=== PATIENT | male | born 1930 | race Caucasian/White ===

== ENCOUNTER 2018-06-07 10:13 | Outpatient (CLI) | payer MEDICARE, OTHER ==
[~2018-06-07 10:13] MED LIST: Iopamidol 370 76% 100 ML VIAL ONE
--- NOTE | 2018-06-07 15:54 | CT ---
ABDOMEN CT SCAN WITH IV CONTRAST: HISTORY: An 88-year-old male with a history of weight loss, bloating, and abdominal pain. FINDINGS: There are some old granulomatous calcifications within the visualized lungs with some minimal linear stranding in the left base with some chronic change and/or subsegmental atelectasis. There is a larg e hiatal hernia with essentially of the stomach being herniated. 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 No evidence for significant volvulus of the stomach. There is emptying o f contrast from the antrum which is essentially at the GE junction region into the second and third p ortions of the duodenum. There is a large septated cyst involving the left kidney which measures blake roximately 4.7 x 7.4 x 8.2 cm in size. There are some slightly thickened calcified septae involving a portion of this loculated cyst. There is no definitive evidence for soft tissue enhancement associ ated with this cyst. Several other smaller right and left renal cysts. No renal calculus or obst ruction. A 4.4 cm diameter infrarenal infrarenal abdominal aortic aneurysm above the level of the bi furcation with some associated thick noncalcified plaque. Normal-appearing appendix. No significant free intraperitoneal fluid. IMPRESSION: Very large hiatal hernia with almost the entire stomach being herniated. No evidence for obstruction or significant associated volvulus. Large multiseptated left renal cyst with some associated fairly thick calcified septae, but no evidence of abnormal enhancing soft tissue component. Multiple other bilateral renal cysts. If the patient has any hematuria, consideration for a complete with and without contrast study with r enal mass protocol might be of benefit. A 4.4 cm diameter infrarenal abdominal aortic aneurysm. No other significant acute process. POS: [facility]
== END 2018-06-07 10:14 | disposition home or self-care (01) ==
LOC: SCSCT 10:13
PROVIDERS: ATTEND Internal Medicine Gastroenterology
DX: R10.9 Unspecified abdominal pain (principal); R63.4 Abnormal weight loss; R14.0 Abdominal distension (gaseous); K44.9 Diaphragmatic hernia without obstruction or gangrene; N28.1 Cyst of kidney, acquired; I71.4 Abdominal aortic aneurysm, without rupture
CPT/HCPCS: 74160; 82565

== ENCOUNTER 2021-12-17 13:39 | Outpatient (CLI) | payer MEDICARE, OTHER ==
[2021-12-17 15:11] LABS: #Basophils 0.1 10x3/uL (0.0-0.2); #Monocytes 0.8 10x3/uL (0.0-1.1); #Neutrophils 10.2 10x3/uL (1.5-8.4); %Basophils 0.5 % (0.0-2.0); %Eosinophils 0.3 % (0.0-6.0); %Lymphocytes 9.3 % (18.0-47.0); %Monocytes 6.8 % (0.0-10.0); %Neutrophils 82.8 % (40.0-75.0); Hemoglobin 11.8 g/dL (13.5-17.5); Mean Corpuscular HGB CONC 32.2 g/dL (32.0-36.0); Mean Corpuscular Hemoglobin 28.8 pg (27.0-33.0); Mean Corpuscular Volume 89.5 fl (81.2-95.1); Mean Platelet Volume 9.6 fl (7.4-10.4); Platelet Count 270 10x3/uL (150-450); RBC Distribution Width 15.6 % (11.5-14.5); White Blood Cell (WBC) Count 12.3 10x3/uL (3.5-10.5)
[2021-12-17 15:25] LABS: ALT (SGPT) 9 U/L (8-55); AST (SGOT) 17 U/L (5-34); Albumin 4.2 g/dL (3.4-4.8); Alkaline Phosphatase 67 U/L (40-110); Anion Gap 15 mmol/L (10-20); BUN (Urea Nitrogen) 15 mg/dL (8.4-25.7); Bilirubin, Total 0.5 mg/dL (0.2-1.2); Calc. Creatinine Clearance 0 mL/min (70-130); Calcium 9.2 mg/dL (7.8-10.44); Carbon Dioxide 26 mmol/L (23-31); Chloride 101 mmol/L (98-107); Globulin 2.7 g/dL (2.4-3.5); Glucose 114 mg/dL (83-110); Potassium 4.7 mmol/L (3.5-5.1); Protein, Total 6.9 g/dL (5.8-8.1); Sodium 137 mmol/L (136-145)
[2021-12-18 08:33] LABS: SARS-CoV-2 PCR by NAA Not Detected (NotDetected)
== END 2021-12-17 13:40 | disposition home or self-care (01) ==
LOC: LABBT 13:39
PROVIDERS: ATTEND Surgery
DX: Z01.818 Encounter for other preprocedural examination (principal); K44.9 Diaphragmatic hernia without obstruction or gangrene; Z20.822 Contact with and (suspected) exposure to COVID-19
CPT/HCPCS: 80053; 85025; 93005; U0003; U0005; 93010

== ENCOUNTER 2021-12-22 05:56 | Observation (INO) | payer MEDICARE ==
[2021-12-19 10:55] VITALS: BMI 17.2
[2021-12-22] MEDS ORDERED: SUGAMMADEX SODIUM 200 MG/2 ML VIAL ONE (06:34)
[2021-12-22] MEDS ORDERED: fentaNYL Citrate/PF 100 MCG/2 ML SYRINGE ONE (06:34)
[2021-12-22] MEDS ORDERED: Famotidine/PF 20 mg/2ml Vial ONE (06:35)
[2021-12-22] MEDS ORDERED: Bupivacaine 0.25% 10 ML VIAL ONE (06:54)
[2021-12-22] MEDS ORDERED: Lidocaine 1% w/Epinephrine 1:100K 20 ML VIAL ONE (06:54)
[2021-12-22] MEDS ORDERED: ceFAZolin (BATCH) 2 GM/100 ML BAG ONE (07:24)
[2021-12-22] MEDS ORDERED: Ketorolac Tromethamine 30 MG/ML VIAL ONE (07:33)
[2021-12-22] MEDS ORDERED: Ondansetron PF 4 MG/2 ML Vial ONE (07:33)
[2021-12-22] MEDS ORDERED: Succinylcholine 200 MG/10 ml SYRINGE FS ONE (07:33)
[2021-12-22] MEDS ORDERED: Rocuronium Bromide 10 MG/ML (10ML VIAL) ONE (07:33)
[2021-12-22] MEDS ORDERED: Glycopyrrolate 0.2 MG/ML 5 ML SYRINGE ONE (07:33)
[2021-12-22] MEDS ORDERED: PHENYLEPHRINE-NS 100 MCG/ML 10 ML SYRINGE ONE (07:33)
[2021-12-22] MEDS ORDERED: PROPOFOL 200 MG/20 ML VIAL ONE (07:33)
[2021-12-22] MEDS ORDERED: Dexamethasone 20 MG/5 ML VIAL ONE (07:33)
[2021-12-22] MEDS ORDERED: Metoclopramide HCl 10 MG/2 ML VIAL ONE (07:33)
[2021-12-22] MEDS ORDERED: Lidocaine 1% PF 5 ML VIAL ONE (07:33)
[2021-12-22] MEDS ORDERED: hydrALAZINE 20 MG/ML VIAL SLOW IVP PRN (10:21)
[2021-12-22] MEDS ORDERED: Dextrose 50% Abboject 50 ML SYRINGE SLOW IVP PRN (10:21)
[2021-12-22] MEDS ORDERED: Hydrocodone-Acetamin 15 ML UDCUP PO PRN (10:21)
[2021-12-22] MEDS ORDERED: diphenhydrAMINE 50 MG/ML VIAL IVP PRN (10:21)
[2021-12-22] MEDS ORDERED: Dextrose 5% in Water 1,000 ML IV PRN (10:21)
[2021-12-22] MEDS ORDERED: Promethazine HCl 25 MG/ML VIAL IM PRN (10:21)
[2021-12-22] MEDS ORDERED: Morphine 4 MG/ML VIAL SLOW IVP PRN (10:21)
[2021-12-22] MEDS ORDERED: Morphine 2 MG/ML VIAL SLOW IVP PRN (10:21)
[2021-12-22] MEDS ORDERED: Ondansetron PF 4 MG/2 ML Vial IVP PRN (10:21)
[2021-12-22] MEDS ORDERED: Ondansetron HCl/PF 4 MG/2 ML Vial IVP PRN (10:28)
[2021-12-22] MEDS ORDERED: Fentanyl 100 MCG/2 ML VIAL ONE (10:47)
[2021-12-22] MEDS: D5 1/2 NS w/20 mEq KCL 1,000 ML IV SCH ×2 (12:45→20:29)
[2021-12-22] MEDS: ceFAZolin (BATCH) 2 GM in Premix Bag 1 BAG IVPB SCH (17:11)
[2021-12-22] MEDS ORDERED: ALPRAZolam 0.25 MG TAB PO SCH (21:00)
[2021-12-23] MEDS: ceFAZolin (BATCH) 2 GM in Premix Bag 1 BAG IVPB SCH (00:48)
[2021-12-23] MEDS: D5 1/2 NS w/20 mEq KCL 1,000 ML IV SCH ×2 (05:45→13:42)
[2021-12-23 06:50] LABS: #Lymphocytes 1.1 thou/uL (1.20-3.40); #Monocytes 0.9 thou/uL (0.11-0.59); #Neutrophils 8.2 thou/uL (1.40-6.50); %Basophils 0.2 % (0.0-1.0); %Eosinophils 0.2 % (0.0-10.0); %Lymphocytes 10.7 % (21.0-51.0); %Monocytes 8.4 % (0.0-10.0); %Neutrophils 80.5 % (42.0-75.0); Hemoglobin 10.7 g/dL (14.0-18.0); Mean Corpuscular HGB CONC 33.2 g/dL (32.0-36.0); Mean Corpuscular Hemoglobin 31.4 pg (27.0-31.0); Mean Corpuscular Volume 94.5 fL (78.0-98.0); Mean Platelet Volume 7.2 fL (7.4-10.4); Platelet Count 181 thou/uL (130-400); RBC Distribution Width 15.3 % (11.5-14.5); Red Blood Cell (RBC) Count 3.42 mill/uL (4.70-6.10); White Blood Cell (WBC) Count 10.2 thou/uL (4.8-10.8)
[2021-12-23 07:11] LABS: Anion Gap 9 mmol/L (10-20); BUN (Urea Nitrogen) 13 mg/dL (8.4-25.7); Calc. Creatinine Clearance 46 mL/min (70-130); Calcium 8.8 mg/dL (7.8-10.44); Carbon Dioxide 26 mmol/L (23-31); Chloride 104 mmol/L (98-107); Glucose 104 mg/dL (83-110); Potassium 4.6 mmol/L (3.5-5.1); Sodium 134 mmol/L (136-145)
[2021-12-23] MEDS ORDERED: Enoxaparin Sodium 30 MG/0.3 ML SYRINGE SC SCH (09:00)
[2021-12-23] MEDS ORDERED: Pantoprazole 40 MG VIAL IVP SCH (09:00)
[2021-12-23 12:56] VITALS: BP 153/80; TEMP 97.5
== END 2021-12-23 12:25 | disposition home or self-care (01) ==
LOC: SDC 05:56 → SURG B 10:21 → INTOOBSV 10:21 → OBSVTOIN 10:21
PROVIDERS: ADMIT Surgery; ATTEND Surgery
PROC: 0BUT4JZ Supplement Diaphragm with Synthetic Substitute, Percutaneous Endoscopic Approach (ICD-10-PCS; principal; 2021-12-22)
PROC: 0DV44ZZ Restriction of Esophagogastric Junction, Percutaneous Endoscopic Approach (ICD-10-PCS; 2021-12-22)
PROC: 8E0W4CZ Robotic Assisted Procedure of Trunk Region, Percutaneous Endoscopic Approach (ICD-10-PCS; 2021-12-22)
DX: K44.9 Diaphragmatic hernia without obstruction or gangrene (principal); K31.89 Other diseases of stomach and duodenum; I25.10 Atherosclerotic heart disease of native coronary artery without angina pectoris; I10 Essential (primary) hypertension; E78.5 Hyperlipidemia, unspecified; K21.9 Gastro-esophageal reflux disease without esophagitis; M19.90 Unspecified osteoarthritis, unspecified site; R63.4 Abnormal weight loss; Z68.1 Body mass index [BMI] 19.9 or less, adult; Z79.02 Long term (current) use of antithrombotics/antiplatelets; Z79.83 Long term (current) use of bisphosphonates; Z79.899 Other long term (current) drug therapy; Z95.1 Presence of aortocoronary bypass graft
CPT/HCPCS: 36415; 80048; 85025; C1781; C9113; J0690; J1100; J1650; J1885; J2405; J2704; J2765; J3010; J3480; S0020; S0028

== ENCOUNTER 2021-12-30 01:29 | Inpatient (IN) | payer MEDICARE, OTHER ==
[2021-12-30] MEDS ORDERED: Ondansetron PF 4 MG/2 ML Vial IVP PRN ×2 (03:15→18:09)
[2021-12-30] MEDS ORDERED: Ondansetron ODT 4 MG TAB SL PRN (03:15)
[2021-12-30] MEDS ORDERED: Lactated Ringer's 1,000 ML IV SCH (03:15)
[2021-12-30 03:28] LABS: SARS-CoV-2 NAA Rapid Test Not Detected (NotDetected)
[2021-12-30 04:32] VITALS: BMI 16.2
[2021-12-30 08:33] LABS: #Eosinphils 0.1 thou/uL (0.0-0.7); #Lymphocytes 1.3 thou/uL (1.20-3.40); #Monocytes 1.1 thou/uL (0.11-0.59); #Neutrophils 6.7 thou/uL (1.40-6.50); %Basophils 0.2 % (0.0-1.0); %Eosinophils 0.9 % (0.0-10.0); %Lymphocytes 13.9 % (21.0-51.0); %Monocytes 11.9 % (0.0-10.0); Hemoglobin 11.1 g/dL (14.0-18.0); Mean Corpuscular HGB CONC 32.5 g/dL (32.0-36.0); Mean Corpuscular Hemoglobin 30.4 pg (27.0-31.0); Mean Corpuscular Volume 93.6 fL (78.0-98.0); Platelet Count 256 thou/uL (130-400); RBC Distribution Width 15.4 % (11.5-14.5); Red Blood Cell (RBC) Count 3.64 mill/uL (4.70-6.10); White Blood Cell (WBC) Count 9.2 thou/uL (4.8-10.8)
[2021-12-30 08:48] LABS: ALT (SGPT) Less than 7 U/L (8-55); AST (SGOT) 11 U/L (5-34); Albumin 3.2 g/dL (3.4-4.8); Alkaline Phosphatase 49 U/L (40-110); Anion Gap 8 mmol/L (10-20); BUN (Urea Nitrogen) 18 mg/dL (8.4-25.7); Bilirubin, Total 0.4 mg/dL (0.2-1.2); Calc. Creatinine Clearance 47 mL/min (70-130); Calcium 8.7 mg/dL (7.8-10.44); Carbon Dioxide 28 mmol/L (23-31); Chloride 102 mmol/L (98-107); Globulin 2.8 g/dL (2.4-3.5); Glucose 114 mg/dL (83-110); Lipase 19 U/L (8-78); Magnesium 2.1 mg/dL (1.6-2.6); Phosphorus 2.6 mg/dL (2.3-4.7); Potassium 4.2 mmol/L (3.5-5.1); Sodium 134 mmol/L (136-145)
[2021-12-30] MEDS ORDERED: PHENYLEPHRINE-NS 100 MCG/ML 10 ML SYRINGE ONE ×2 (10:51→11:00)
[2021-12-30] MEDS ORDERED: PROPOFOL 200 MG/20 ML VIAL ONE (11:00)
[2021-12-30] MEDS ORDERED: Lidocaine 1% PF 5 ML VIAL ONE (11:00)
[2021-12-30] MEDS ORDERED: Sodium Chloride 0.9% 1,000 ML IV SCH (11:45)
[2021-12-30] MEDS: Multivitamins, Adult 10 ML, Folic Acid 1 MG, Thiamine HCl 100 MG in Dextrose 5 %-0.45 %... IV SCH (14:39)
[2021-12-30] MEDS ORDERED: Calcium Carbonate 500 MG ChewTAB PO PRN (17:57)
[2021-12-30] MEDS ORDERED: Acetaminophen 650 MG Suppository PR PRN (17:57)
[2021-12-30] MEDS ORDERED: Ondansetron ODT 4 MG TAB PO PRN (18:09)
[2021-12-30] MEDS: cefTRIAXone\\ROCEPHIN 1 GM in Sodium Chloride 0.9% 100 ML IVPB SCH (20:44)
[2021-12-30] MEDS: Pantoprazole 40 MG VIAL IVP SCH (20:47)
[2021-12-30] MEDS ORDERED: Lorazepam 2 MG/ML VIAL SLOW IVP SCH ×2 (21:00)
[2021-12-30] MEDS: Sodium Chloride 0.65% Nasal 44 ML BOT EA NARE SCH (21:25)
[2021-12-31] MEDS: D5 1/2 NS w/20 mEq KCL 1,000 ML IV SCH ×2 (01:06→17:41)
[2021-12-31] MEDS ORDERED: D5 1/2 NS w/20 mEq KCL 1,000 ML IV SCH ×2 (03:00)
[2021-12-31] MEDS: Pantoprazole 40 MG VIAL IVP SCH ×2 (08:14→21:12)
[2021-12-31] MEDS: Sodium Chloride 0.65% Nasal 44 ML BOT EA NARE SCH ×3 (08:22→21:17)
[2021-12-31 09:45] LABS: #Eosinphils 0.2 thou/uL (0.0-0.7); #Lymphocytes 0.9 thou/uL (1.20-3.40); #Monocytes 0.5 thou/uL (0.11-0.59); #Neutrophils 5.2 thou/uL (1.40-6.50); %Basophils 0.3 % (0.0-1.0); %Eosinophils 2.5 % (0.0-10.0); %Lymphocytes 12.6 % (21.0-51.0); %Monocytes 7.2 % (0.0-10.0); %Neutrophils 77.4 % (42.0-75.0); Hemoglobin 10.7 g/dL (14.0-18.0); Mean Corpuscular HGB CONC 31.6 g/dL (32.0-36.0); Mean Corpuscular Hemoglobin 30.2 pg (27.0-31.0); Mean Corpuscular Volume 95.5 fL (78.0-98.0); Mean Platelet Volume 6.7 fL (7.4-10.4); Platelet Count 261 thou/uL (130-400); RBC Distribution Width 15.4 % (11.5-14.5); Red Blood Cell (RBC) Count 3.53 mill/uL (4.70-6.10); White Blood Cell (WBC) Count 6.7 thou/uL (4.8-10.8)
[2021-12-31 10:06] LABS: ALT (SGPT) Less than 7 U/L (8-55); AST (SGOT) 11 U/L (5-34); Alkaline Phosphatase 47 U/L (40-110); Anion Gap 9 mmol/L (10-20); BUN (Urea Nitrogen) 9 mg/dL (8.4-25.7); Bilirubin, Total 0.5 mg/dL (0.2-1.2); Calc. Creatinine Clearance 50 mL/min (70-130); Calcium 8.4 mg/dL (7.8-10.44); Carbon Dioxide 23 mmol/L (23-31); Chloride 106 mmol/L (98-107); Globulin 2.6 g/dL (2.4-3.5); Glucose 109 mg/dL (83-110); Phosphorus 2.8 mg/dL (2.3-4.7); Potassium 4.1 mmol/L (3.5-5.1); Protein, Total 5.6 g/dL (5.8-8.1); Sodium 134 mmol/L (136-145)
[2021-12-31] MEDS: Multivitamins, Adult 10 ML, Folic Acid 1 MG, Thiamine HCl 100 MG in Dextrose 5 %-0.45 %... IV SCH (12:41)
[2021-12-31] MEDS: Morphine 2 MG/ML VIAL SLOW IVP PRN (12:41)
[2021-12-31] MEDS: Tamsulosin HCl 0.4 MG CAP PO SCH (12:41)
[2021-12-31] MEDS: ALPRAZolam 0.25 MG TAB PO SCH (21:11)
[2021-12-31] MEDS: cefTRIAXone\\ROCEPHIN 1 GM in Sodium Chloride 0.9% 100 ML IVPB SCH (21:11)
[2022-01-01] MEDS: D5 1/2 NS w/20 mEq KCL 1,000 ML IV SCH (05:11)
[2022-01-01] MEDS: Sodium Chloride 0.65% Nasal 44 ML BOT EA NARE SCH ×3 (08:24→20:24)
[2022-01-01] MEDS: Pantoprazole 40 MG VIAL IVP SCH ×2 (08:24→20:24)
[2022-01-01 09:59] LABS: #Eosinphils 0.1 thou/uL (0.0-0.7); #Lymphocytes 1.2 thou/uL (1.20-3.40); #Monocytes 0.6 thou/uL (0.11-0.59); #Neutrophils 6.2 thou/uL (1.40-6.50); %Basophils 0.4 % (0.0-1.0); %Eosinophils 1.6 % (0.0-10.0); %Lymphocytes 14.4 % (21.0-51.0); %Neutrophils 76.6 % (42.0-75.0); Hemoglobin 11.2 g/dL (14.0-18.0); Mean Corpuscular HGB CONC 31.2 g/dL (32.0-36.0); Mean Corpuscular Hemoglobin 29.5 pg (27.0-31.0); Mean Corpuscular Volume 94.8 fL (78.0-98.0); Mean Platelet Volume 6.6 fL (7.4-10.4); Platelet Count 291 thou/uL (130-400); RBC Distribution Width 15.7 % (11.5-14.5); Red Blood Cell (RBC) Count 3.79 mill/uL (4.70-6.10)
[2022-01-01 10:14] LABS: Phosphorus 2.7 mg/dL (2.3-4.7)
[2022-01-01 10:18] LABS: ALT (SGPT) Less than 7 U/L (8-55); AST (SGOT) 12 U/L (5-34); Albumin 3.1 g/dL (3.4-4.8); Alkaline Phosphatase 48 U/L (40-110); Anion Gap 10 mmol/L (10-20); BUN (Urea Nitrogen) 6 mg/dL (8.4-25.7); Bilirubin, Total 0.5 mg/dL (0.2-1.2); Calc. Creatinine Clearance 48 mL/min (70-130); Calcium 8.3 mg/dL (7.8-10.44); Carbon Dioxide 24 mmol/L (23-31); Chloride 107 mmol/L (98-107); Globulin 2.7 g/dL (2.4-3.5); Glucose 109 mg/dL (83-110); Potassium 3.8 mmol/L (3.5-5.1); Protein, Total 5.8 g/dL (5.8-8.1); Sodium 137 mmol/L (136-145)
[2022-01-01] MEDS: Morphine 2 MG/ML VIAL SLOW IVP PRN (10:41)
[2022-01-01] MEDS: Tamsulosin HCl 0.4 MG CAP PO SCH (12:04)
[2022-01-01] MEDS: Multivitamins, Adult 10 ML, Folic Acid 1 MG, Thiamine HCl 100 MG in Dextrose 5 %-0.45 %... IV SCH (12:58)
[2022-01-01] MEDS ORDERED: MD-Gastroview 120 ML BOT ONE (15:55)
[2022-01-01] MEDS: ALPRAZolam 0.25 MG TAB PO SCH (20:19)
[2022-01-01] MEDS: cefTRIAXone\\ROCEPHIN 1 GM in Sodium Chloride 0.9% 100 ML IVPB SCH (20:19)
[2022-01-01] MEDS ORDERED: Lorazepam 2 MG/ML VIAL SLOW IVP SCH (22:00)
[2022-01-02] MEDS: D5 1/2 NS w/20 mEq KCL 1,000 ML IV SCH ×3 (01:19→22:14)
[2022-01-02 06:32] LABS: #Basophils 0.1 thou/uL (0.0-0.2); #Eosinphils 0.2 thou/uL (0.0-0.7); #Lymphocytes 1.5 thou/uL (1.20-3.40); #Monocytes 0.7 thou/uL (0.11-0.59); #Neutrophils 4.3 thou/uL (1.40-6.50); %Basophils 0.8 % (0.0-1.0); %Eosinophils 3.3 % (0.0-10.0); %Lymphocytes 22.1 % (21.0-51.0); %Monocytes 9.7 % (0.0-10.0); %Neutrophils 64.1 % (42.0-75.0); Hemoglobin 10.7 g/dL (14.0-18.0); Mean Corpuscular HGB CONC 31.7 g/dL (32.0-36.0); Mean Corpuscular Volume 94.7 fL (78.0-98.0); Mean Platelet Volume 6.8 fL (7.4-10.4); Platelet Count 267 thou/uL (130-400); RBC Distribution Width 15.5 % (11.5-14.5); Red Blood Cell (RBC) Count 3.57 mill/uL (4.70-6.10); White Blood Cell (WBC) Count 6.7 thou/uL (4.8-10.8)
[2022-01-02 07:34] LABS: Phosphorus 2.7 mg/dL (2.3-4.7)
[2022-01-02 07:45] LABS: ALT (SGPT) Less than 7 U/L (8-55); AST (SGOT) 13 U/L (5-34); Albumin 2.9 g/dL (3.4-4.8); Alkaline Phosphatase 48 U/L (40-110); Anion Gap 7 mmol/L (10-20); BUN (Urea Nitrogen) 6 mg/dL (8.4-25.7); Bilirubin, Total 0.5 mg/dL (0.2-1.2); Calc. Creatinine Clearance 53 mL/min (70-130); Calcium 7.9 mg/dL (7.8-10.44); Carbon Dioxide 23 mmol/L (23-31); Chloride 109 mmol/L (98-107); Globulin 2.6 g/dL (2.4-3.5); Glucose 104 mg/dL (83-110); Potassium 3.4 mmol/L (3.5-5.1); Protein, Total 5.5 g/dL (5.8-8.1); Sodium 136 mmol/L (136-145)
[2022-01-02] MEDS: Pantoprazole 40 MG VIAL IVP SCH ×2 (09:49→22:14)
[2022-01-02] MEDS: Aquaphor 10 GM TUBE TOP SCH ×3 (13:31→22:05)
[2022-01-02] MEDS: Tamsulosin HCl 0.4 MG CAP PO SCH (13:31)
[2022-01-02] MEDS: Sodium Chloride 0.65% Nasal 44 ML BOT EA NARE SCH ×3 (13:32→22:05)
[2022-01-02] MEDS ORDERED: [UNRECOGNIZED DRUG - OTHER] IV SCH (14:00)
[2022-01-02] MEDS ORDERED: POTASSIUM PHOSPHATE IV SCH (14:00)
[2022-01-02] MEDS ORDERED: SODIUM ACETATE IV SCH (14:00)
[2022-01-02] MEDS ORDERED: POTASSIUM ACETATE IV SCH (14:00)
[2022-01-02] MEDS: Multivitamins, Adult 10 ML, Folic Acid 1 MG, Thiamine HCl 100 MG in Dextrose 5 %-0.45 %... IV SCH (17:04)
[2022-01-02] MEDS ORDERED: Phenylephrine 10 MG/ML VIAL ONE (17:19)
[2022-01-02] MEDS ORDERED: PHENYLEPHRINE-NS 100 MCG/ML 10 ML SYRINGE ONE (19:09)
[2022-01-02] MEDS ORDERED: AFRIN NASAL MIST 15 ML BOT ONE (20:12)
[2022-01-02] MEDS: ALPRAZolam 0.25 MG TAB PO SCH (22:05)
[2022-01-02] MEDS: cefTRIAXone\\ROCEPHIN 1 GM in Sodium Chloride 0.9% 100 ML IVPB SCH (22:14)
[2022-01-02 23:44] LABS: ALT (SGPT) Less than 7 U/L (8-55); AST (SGOT) 14 U/L (5-34); Alkaline Phosphatase 51 U/L (40-110); Anion Gap 10 mmol/L (10-20); BUN (Urea Nitrogen) 7 mg/dL (8.4-25.7); Bilirubin, Total 0.6 mg/dL (0.2-1.2); Calc. Creatinine Clearance 54 mL/min (70-130); Calcium 8.4 mg/dL (7.8-10.44); Carbon Dioxide 24 mmol/L (23-31); Chloride 108 mmol/L (98-107); Cholesterol 99 mg/dl (< 200 Desired); Globulin 2.8 g/dL (2.4-3.5); Glucose 94 mg/dL (83-110); HDL Cholesterol 33 mg/dL (>60 Neg Risk); LDL Cholesterol, Calculated 54 mg/dL; Phosphorus 2.9 mg/dL (2.3-4.7); Potassium 3.8 mmol/L (3.5-5.1); Protein, Total 5.8 g/dL (5.8-8.1); Sodium 138 mmol/L (136-145); Triglycerides 62 mg/dL (Less than 150)
[2022-01-02 23:46] LABS: INR-International Normal Ratio 1.2; Prothrombin Time 15.5 sec (12.0-14.7)
[2022-01-02 23:47] LABS: PTT 41.7 sec (22.9-36.1)
[2022-01-03 06:59] LABS: #Eosinphils 0.1 thou/uL (0.0-0.7); #Lymphocytes 1.1 thou/uL (1.20-3.40); #Monocytes 0.7 thou/uL (0.11-0.59); #Neutrophils 6.8 thou/uL (1.40-6.50); %Basophils 0.3 % (0.0-1.0); %Eosinophils 1.3 % (0.0-10.0); %Lymphocytes 12.1 % (21.0-51.0); %Neutrophils 78.3 % (42.0-75.0); Hemoglobin 10.6 g/dL (14.0-18.0); Mean Corpuscular HGB CONC 31.7 g/dL (32.0-36.0); Mean Corpuscular Hemoglobin 29.9 pg (27.0-31.0); Mean Corpuscular Volume 94.4 fL (78.0-98.0); Mean Platelet Volume 6.9 fL (7.4-10.4); Platelet Count 256 thou/uL (130-400); RBC Distribution Width 15.4 % (11.5-14.5); Red Blood Cell (RBC) Count 3.55 mill/uL (4.70-6.10); White Blood Cell (WBC) Count 8.6 thou/uL (4.8-10.8)
[2022-01-03 07:17] LABS: ALT (SGPT) Less than 7 U/L (8-55); AST (SGOT) 13 U/L (5-34); Albumin 2.9 g/dL (3.4-4.8); Alkaline Phosphatase 48 U/L (40-110); Anion Gap 8 mmol/L (10-20); BUN (Urea Nitrogen) 9 mg/dL (8.4-25.7); Bilirubin, Total 0.6 mg/dL (0.2-1.2); Calc. Creatinine Clearance 54 mL/min (70-130); Calcium 7.9 mg/dL (7.8-10.44); Carbon Dioxide 24 mmol/L (23-31); Chloride 109 mmol/L (98-107); Globulin 2.6 g/dL (2.4-3.5); Glucose 76 mg/dL (83-110); Phosphorus 2.7 mg/dL (2.3-4.7); Potassium 3.9 mmol/L (3.5-5.1); Protein, Total 5.5 g/dL (5.8-8.1); Sodium 137 mmol/L (136-145)
[2022-01-03] MEDS: Polyethylene Glycol 3350 17 GM Packet PER TUBE SCH (10:09)
[2022-01-03] MEDS: Pantoprazole 40 MG VIAL IVP SCH ×2 (10:44→20:34)
[2022-01-03] MEDS: Aquaphor 10 GM TUBE TOP SCH ×4 (10:54→20:46)
[2022-01-03] MEDS: Sodium Chloride 0.65% Nasal 44 ML BOT EA NARE SCH ×3 (10:54→20:45)
[2022-01-03] MEDS: Tamsulosin HCl 0.4 MG CAP PO SCH (14:58)
[2022-01-03] MEDS: D5 1/2 NS w/20 mEq KCL 1,000 ML IV SCH (14:58)
[2022-01-03] MEDS: SODIUM ACETATE IV SCH (15:01)
[2022-01-03] MEDS: [UNRECOGNIZED DRUG - OTHER] IV SCH (15:01)
[2022-01-03] MEDS: POTASSIUM ACETATE IV SCH (15:01)
[2022-01-03] MEDS: POTASSIUM PHOSPHATE IV SCH (15:01)
[2022-01-03] MEDS ORDERED: Nystatin 500,000 UNITS/5 ML UDCUP SSW SCH (17:30)
[2022-01-03] MEDS: ALPRAZolam 0.25 MG TAB PO SCH ×2 (20:27→21:07)
[2022-01-03] MEDS: cefTRIAXone\\ROCEPHIN 1 GM in Sodium Chloride 0.9% 100 ML IVPB SCH (20:28)
[2022-01-04] MEDS: D5 1/2 NS w/20 mEq KCL 1,000 ML IV SCH ×2 (02:29→17:11)
[2022-01-04 06:51] LABS: #Eosinphils 0.2 thou/uL (0.0-0.7); #Monocytes 0.9 thou/uL (0.11-0.59); #Neutrophils 9.9 thou/uL (1.40-6.50); %Basophils 0.2 % (0.0-1.0); %Eosinophils 1.9 % (0.0-10.0); %Lymphocytes 8.2 % (21.0-51.0); %Monocytes 7.4 % (0.0-10.0); %Neutrophils 82.3 % (42.0-75.0); Hemoglobin 10.2 g/dL (14.0-18.0); Mean Corpuscular HGB CONC 31.6 g/dL (32.0-36.0); Mean Corpuscular Volume 94.8 fL (78.0-98.0); Mean Platelet Volume 6.6 fL (7.4-10.4); Platelet Count 245 thou/uL (130-400); RBC Distribution Width 15.6 % (11.5-14.5); Red Blood Cell (RBC) Count 3.41 mill/uL (4.70-6.10)
[2022-01-04 07:11] LABS: Anion Gap 8 mmol/L (10-20); BUN (Urea Nitrogen) 17 mg/dL (8.4-25.7); Calc. Creatinine Clearance 57 mL/min (70-130); Carbon Dioxide 25 mmol/L (23-31); Chloride 106 mmol/L (98-107); Glucose 113 mg/dL (83-110); Magnesium 2.1 mg/dL (1.6-2.6); Phosphorus 2.9 mg/dL (2.3-4.7); Potassium 4.7 mmol/L (3.5-5.1); Sodium 134 mmol/L (136-145)
[2022-01-04] MEDS: Pantoprazole 40 MG VIAL IVP SCH ×2 (08:53→20:48)
[2022-01-04] MEDS: Aquaphor 10 GM TUBE TOP SCH ×4 (09:51→20:50)
[2022-01-04] MEDS: Sodium Chloride 0.65% Nasal 44 ML BOT EA NARE SCH ×3 (09:51→20:50)
[2022-01-04] MEDS: Polyethylene Glycol 3350 17 GM Packet PER TUBE SCH (09:51)
[2022-01-04] MEDS: Tamsulosin HCl 0.4 MG CAP PO SCH (11:24)
[2022-01-04] MEDS: [UNRECOGNIZED DRUG - OTHER] IV SCH (14:25)
[2022-01-04] MEDS: SODIUM ACETATE IV SCH (14:25)
[2022-01-04] MEDS: POTASSIUM ACETATE IV SCH (14:25)
[2022-01-04] MEDS: POTASSIUM PHOSPHATE IV SCH (14:25)
[2022-01-04] MEDS: ALPRAZolam 0.25 MG TAB PO SCH (20:44)
[2022-01-04] MEDS: cefTRIAXone\\ROCEPHIN 1 GM in Sodium Chloride 0.9% 100 ML IVPB SCH (20:47)
[2022-01-05] MEDS: D5 1/2 NS w/20 mEq KCL 1,000 ML IV SCH ×2 (02:15→13:52)
[2022-01-05 06:37] LABS: Anion Gap 9 mmol/L (10-20); BUN (Urea Nitrogen) 20 mg/dL (8.4-25.7); Calc. Creatinine Clearance 55 mL/min (70-130); Calcium 8.4 mg/dL (7.8-10.44); Carbon Dioxide 27 mmol/L (23-31); Chloride 104 mmol/L (98-107); Glucose 94 mg/dL (83-110); Magnesium 2.2 mg/dL (1.6-2.6); Potassium 4.8 mmol/L (3.5-5.1); Sodium 135 mmol/L (136-145)
[2022-01-05 06:41] LABS: Troponin I 0.046 ng/mL (< 0.028)
[2022-01-05] MEDS: Aquaphor 10 GM TUBE TOP SCH ×4 (08:03→21:58)
[2022-01-05] MEDS: Sodium Chloride 0.65% Nasal 44 ML BOT EA NARE SCH ×3 (08:04→21:58)
[2022-01-05] MEDS: Pantoprazole 40 MG VIAL IVP SCH ×2 (08:05→21:38)
[2022-01-05] MEDS: Polyethylene Glycol 3350 17 GM Packet PER TUBE SCH (08:11)
[2022-01-05] MEDS ORDERED: Enoxaparin Sodium 40 MG/0.4 ML SYRINGE SC SCH (09:00)
[2022-01-05 10:36] LABS: Troponin I 0.022 ng/mL (< 0.028)
[2022-01-05] MEDS: Tamsulosin HCl 0.4 MG CAP PO SCH (11:24)
[2022-01-05 14:29] LABS: Troponin I 0.031 ng/mL (< 0.028)
[2022-01-05] MEDS: ALPRAZolam 0.25 MG TAB PO SCH (21:38)
[2022-01-05] MEDS: cefTRIAXone\\ROCEPHIN 1 GM in Sodium Chloride 0.9% 100 ML IVPB SCH (21:43)
[2022-01-06] MEDS: D5 1/2 NS w/20 mEq KCL 1,000 ML IV SCH ×2 (04:37→18:11)
[2022-01-06 05:13] LABS: #Eosinphils 0.3 thou/uL (0.0-0.7); #Lymphocytes 0.9 thou/uL (1.20-3.40); #Monocytes 0.8 thou/uL (0.11-0.59); #Neutrophils 4.5 thou/uL (1.40-6.50); %Basophils 0.3 % (0.0-1.0); %Eosinophils 5.3 % (0.0-10.0); %Lymphocytes 14.5 % (21.0-51.0); %Monocytes 11.5 % (0.0-10.0); %Neutrophils 68.3 % (42.0-75.0); Hemoglobin 9.4 g/dL (14.0-18.0); Mean Corpuscular HGB CONC 32.4 g/dL (32.0-36.0); Mean Corpuscular Volume 95.9 fL (78.0-98.0); Platelet Count 255 thou/uL (130-400); RBC Distribution Width 15.6 % (11.5-14.5); Red Blood Cell (RBC) Count 3.03 mill/uL (4.70-6.10); White Blood Cell (WBC) Count 6.5 thou/uL (4.8-10.8)
[2022-01-06 05:28] LABS: Anion Gap 9 mmol/L (10-20); BUN (Urea Nitrogen) 15 mg/dL (8.4-25.7); Calc. Creatinine Clearance 56 mL/min (70-130); Calcium 8.1 mg/dL (7.8-10.44); Carbon Dioxide 27 mmol/L (23-31); Chloride 103 mmol/L (98-107); Glucose 101 mg/dL (83-110); Magnesium 2.1 mg/dL (1.6-2.6); Phosphorus 3.1 mg/dL (2.3-4.7); Potassium 4.5 mmol/L (3.5-5.1); Sodium 134 mmol/L (136-145)
[2022-01-06] MEDS: Enoxaparin Sodium 40 MG/0.4 ML SYRINGE SC SCH (08:30)
[2022-01-06] MEDS: Sodium Chloride 0.65% Nasal 44 ML BOT EA NARE SCH ×4 (08:30→21:30)
[2022-01-06] MEDS: Pantoprazole 40 MG VIAL IVP SCH ×2 (08:30→21:14)
[2022-01-06] MEDS: Polyethylene Glycol 3350 17 GM Packet PER TUBE SCH (08:36)
[2022-01-06] MEDS: Aquaphor 10 GM TUBE TOP SCH ×4 (08:36→21:30)
[2022-01-06] MEDS ORDERED: Clopidogrel Bisulfate 75 MG TAB PO SCH (09:00)
[2022-01-06 12:39] LABS: Troponin I 0.028 ng/mL (< 0.028)
[2022-01-06] MEDS: Tamsulosin HCl 0.4 MG CAP PO SCH (12:54)
[2022-01-06 16:10] LABS: Troponin I 0.035 ng/mL (< 0.028)
[2022-01-06] MEDS: cefTRIAXone\\ROCEPHIN 1 GM in Sodium Chloride 0.9% 100 ML IVPB SCH (21:14)
[2022-01-06] MEDS: ALPRAZolam 0.25 MG TAB PO SCH (21:14)
[2022-01-07] MEDS: D5 1/2 NS w/20 mEq KCL 1,000 ML IV SCH ×2 (05:59→17:29)
[2022-01-07] MEDS: Polyethylene Glycol 3350 17 GM Packet PER TUBE SCH (09:35)
[2022-01-07] MEDS: Enoxaparin Sodium 40 MG/0.4 ML SYRINGE SC SCH ×3 (09:43→09:52)
[2022-01-07] MEDS: Sodium Chloride 0.65% Nasal 44 ML BOT EA NARE SCH ×3 (09:43→20:54)
[2022-01-07] MEDS: Aquaphor 10 GM TUBE TOP SCH ×4 (09:44→20:54)
[2022-01-07] MEDS: Pantoprazole 40 MG VIAL IVP SCH ×2 (09:57→21:00)
[2022-01-07] MEDS ORDERED: Heparin 1,000 UNITS/ML VIAL ONE (13:01)
[2022-01-07] MEDS ORDERED: MD-Gastroview 120 ML BOT ONE (15:03)
[2022-01-07] MEDS: Tamsulosin HCl 0.4 MG CAP PO SCH (17:26)
[2022-01-07] MEDS: cefTRIAXone\\ROCEPHIN 1 GM in Sodium Chloride 0.9% 100 ML IVPB SCH (21:00)
[2022-01-07] MEDS: ALPRAZolam 0.25 MG TAB PO SCH (21:00)
[2022-01-07 21:42] VITALS: TEMP 97.8
[2022-01-08 08:02] VITALS: BP 145/95
[2022-01-08] MEDS: Enoxaparin Sodium 40 MG/0.4 ML SYRINGE SC SCH (09:06)
[2022-01-08] MEDS: Aquaphor 10 GM TUBE TOP SCH ×2 (09:08→13:25)
[2022-01-08] MEDS: Polyethylene Glycol 3350 17 GM Packet PER TUBE SCH (09:09)
[2022-01-08] MEDS: Sodium Chloride 0.65% Nasal 44 ML BOT EA NARE SCH ×2 (09:09→14:52)
[2022-01-08] MEDS: Pantoprazole 40 MG VIAL IVP SCH (09:15)
[2022-01-08] MEDS: D5 1/2 NS w/20 mEq KCL 1,000 ML IV SCH (09:16)
[2022-01-08] MEDS ORDERED: Senokot 8.6 MG TAB PO PRN (10:54)
[2022-01-08] MEDS: Tamsulosin HCl 0.4 MG CAP PO SCH (14:52)
== END 2022-01-08 14:48 | disposition home health service (06) | DRG 393 ==
LOC: ERS 01:29 → SJJU 02:03
PROVIDERS: ADMIT Surgery; ATTEND Surgery
PROC: 0DB78ZX Excision of Stomach, Pylorus, Via Natural or Artificial Opening Endoscopic, Diagnostic (ICD-10-PCS; principal; 2021-12-30)
PROC: 0D798ZZ Dilation of Duodenum, Via Natural or Artificial Opening Endoscopic (ICD-10-PCS; 2021-12-30)
PROC: 0D9670Z Drainage of Stomach with Drainage Device, Via Natural or Artificial Opening (ICD-10-PCS; 2021-12-30)
PROC: 02HV33Z Insertion of Infusion Device into Superior Vena Cava, Percutaneous Approach (ICD-10-PCS; 2022-01-02)
PROC: B5181ZA Fluoroscopy of Superior Vena Cava using Low Osmolar Contrast, Guidance (ICD-10-PCS; 2022-01-02)
PROC: B548ZZA Ultrasonography of Superior Vena Cava, Guidance (ICD-10-PCS; 2022-01-02)
DX: K55.1 Chronic vascular disorders of intestine (principal); E43 Unspecified severe protein-calorie malnutrition; T83.518A Infection and inflammatory reaction due to other urinary catheter, initial encounter; E87.1 Hypo-osmolality and hyponatremia; K31.5 Obstruction of duodenum; Z68.1 Body mass index [BMI] 19.9 or less, adult; N39.0 Urinary tract infection, site not specified; K26.9 Duodenal ulcer, unspecified as acute or chronic, without hemorrhage or perforation; I10 Essential (primary) hypertension; I73.9 Peripheral vascular disease, unspecified; N40.0 Benign prostatic hyperplasia without lower urinary tract symptoms; I25.10 Atherosclerotic heart disease of native coronary artery without angina pectoris; E78.5 Hyperlipidemia, unspecified; M81.0 Age-related osteoporosis without current pathological fracture; Z20.822 Contact with and (suspected) exposure to COVID-19; F41.9 Anxiety disorder, unspecified; R33.9 Retention of urine, unspecified; D64.9 Anemia, unspecified; E86.0 Dehydration; Y83.8 Other surgical procedures as the cause of abnormal reaction of the patient, or of later complication, without mention of misadventure at the time of the procedure; K29.70 Gastritis, unspecified, without bleeding; K20.90 Esophagitis, unspecified without bleeding; E87.6 Hypokalemia; Z95.1 Presence of aortocoronary bypass graft
CPT/HCPCS: 36415; 36416; 36569; 74018; 74240; 74246; 76140; 80048; 80053; 80061; 83690; 83735; 84100; 84134; 84484; 85025; 85610; 85730; 88305; 88342; 93005; 93010; 99285; C1751; C1776; C9113; J0610; J0696; J1644; J1650; J2060; J2270; J2370; J2704; J3411; J3475; J3480; J3490; J7042; J7120; Q9963; U0002; U0003; U0005